=== PATIENT | female | born 1935 | race Caucasian/White ===

== ENCOUNTER 2019-02-27 17:48 | Inpatient (IN) | payer MEDICARE ==
[~2019-02-27] VITALS: Ht 165.1 cm; Wt 63.5 kg
[2019-02-27] MEDS ORDERED: METO100ER PO (18:05)
[2019-02-27] MEDS ORDERED: TIMO.5OPSO BOTHEYES (18:05)
[2019-02-27] MEDS ORDERED: ALLO100 PO (18:05)
[2019-02-27] MEDS ORDERED: LORA1 PO (18:05)
[2019-02-27] MEDS ORDERED: Dyazide 37.5-21 EACH PO (18:05)
[2019-02-27] MEDS ORDERED: Isosorbide Mono30 MG PO (18:05)
[2019-02-27 18:15] LABS: Calcium, Ionized (POC) 1.23 mmol/L (1.10-1.46); Chloride (POC) 87 mmol/L (98-108); Creatinine (POC) 1.4 mg/dL (0.6-1.0); Glucose (ISTAT POC) 143 mg/dL (70-99); Hemoglobin (POC) 14.3 g/dL (12.0-16.0); Potassium (POC) 3.3 mmol/L (3.5-5.5); Sodium (POC) 126 mmol/L (135-148); Total CO2 (POC) 29 mmol/L (21-32)
[2019-02-27 18:23] LABS: Source, Urine Clean Catch
[2019-02-27 18:25] LABS: Bilirubin, Urine Neg (Neg); Blood, Urine 5+ (Neg); Glucose Qualitative, Urine Neg (Neg); Ketones, Urine Neg (Neg); Leukocyte Esterase, Urine 2+ (Neg); Nitrite, Urine Neg (Neg); Protein, Urine 3+ (Neg); Specific Gravity, Urine 1.015 (1.003-1.022); Urobilinogen, Urine NORM (Normal)
[2019-02-27 18:36] LABS: BASOPHILS ABSOLUTE AUTO 0.05 K/mm3 (0.00-0.23); BASOPHILS PERCENT AUTO 0 % (0-2); EOSINOPHILS PERCENT AUTO 0 % (0-6); Hematocrit 37.8 % (33.0-51.0); Hemoglobin 12.9 g/dL (11.5-16.0); IMMATURE GRAN ABSOLUTE AUTO 0.13 K/mm3 (0.00-0.10); IMMATURE GRAN PERCENT AUTO 1 % (0-1); LYMPHOCYTES ABSOLUTE AUTO 0.77 K/mm3 (0.84-5.20); LYMPHOCYTES PERCENT AUTO 4 % (21-46); MONOCYTES ABSOLUTE AUTO 1.51 K/mm3 (0.16-1.47); MONOCYTES PERCENT AUTO 7 % (4-13); Mean Corpuscular HGB 33.1 pg (26.0-34.0); Mean Corpuscular HGB Conc 34.1 g/dL (31.5-36.5); Mean Corpuscular Volume 97 fL (80-100); Mean Platelet Volume 8.9 fL (9.1-12.4); NEUTROPHILS ABSOLUTE AUTO 18.24 K/mm3 (1.96-9.15); NEUTROPHILS PERCENT AUTO 88 % (41-73); Platelet Count 405 K/mm3 (150-400); RDW Coefficient Variation 12.4 % (11.7-14.2); RDW Standard Deviation 44.3 fL (35.1-46.3)
[2019-02-27 18:37] LABS: U Amphetamine Screen Not Detected; U Barbituate Screen Not Detected; U Benzodiazapine Screen Not Detected; U Buprenorphine Screen Not Detected; U Cannabinoids Screen Not Detected; U Cocaine Screen Not Detected; U Methadone Screen Not Detected; U Methamphetamine Screen Not Detected; U Opiates Screen Not Detected; U Oxycodone Screen Not Detected; U Phencyclidine Screen Not Detected; U Propoxyphene Screen Not Detected
[2019-02-27 18:47] LABS: Appearance, Urine Hazy (Clear); Color, Urine Yellow (P-Yellow)
[2019-02-27 18:48] LABS: White Blood Cells, Urine 25-50 /hpf (0-5)
[2019-02-27 18:49] LABS: Red Blood Cells, Urine 50-100 /hpf (0-2)
[2019-02-27 18:50] LABS: Bacteria Many /hpf; Squamous Epithelial Cells Few /hpf (Few)
[2019-02-27 18:51] LABS: Alanine Aminotransfer (ALT/SGP 34 U/L (12-78); Albumin, Blood 3.7 g/dL (3.4-5.0); Albumin/Globulin Ratio 0.8 (0.8-1.8); Alk Phos 104 U/L (50-136); Anion Gap 11 mmol/L (6-16); Aspartate Aminotrans (AST/SGOT 45 U/L (12-37); Bilirubin, Total 0.7 mg/dL (0.1-1.0); Blood Urea Nitrogen 30 mg/dL (8-24); CO2, Blood 28 mmol/L (21-32); CPK Creatine Kinase 653 U/L (26-193); Calcium, Blood 10.5 mg/dL (8.5-10.1); Chloride, Blood 87 mmol/L (98-108); Ethanol (Alcohol), Blood, Med <3 mg/dL; Globulin, Blood 4.4 g/dL (2.2-4.0); Glomerular Filtration Rate 45 (60-); Glucose, Blood 143 mg/dL (70-99); Potassium, Blood 3.3 mmol/L (3.5-5.5); Salicylate <1.7 mg/dL (2.8-20.0); Sodium, Blood 126 mmol/L (136-145); Total Protein, Blood 8.1 g/dL (6.4-8.2); Troponin I 0.039 ng/mL (0.000-0.040)
[2019-02-27 18:52] LABS: Acetaminophen, Random <2.0 ug/mL (10.0-30.0)
[2019-02-27 19:06] LABS: Creatine Kinase MB 8.1 ng/mL (0.0-3.6); Creatine Kinase MB Index 1.2 (0.0-4.0)
[2019-02-27] MEDS ORDERED: NITR.4SL SL (22:54)
[2019-02-28 05:18] LABS: BASOPHILS ABSOLUTE AUTO 0.03 K/mm3 (0.00-0.23); BASOPHILS PERCENT AUTO 0 % (0-2); EOSINOPHILS ABSOLUTE AUTO 0.01 K/mm3 (0.00-0.68); EOSINOPHILS PERCENT AUTO 0 % (0-6); Hematocrit 29.3 % (33.0-51.0); Hemoglobin 10.1 g/dL (11.5-16.0); IMMATURE GRAN ABSOLUTE AUTO 0.11 K/mm3 (0.00-0.10); IMMATURE GRAN PERCENT AUTO 1 % (0-1); LYMPHOCYTES ABSOLUTE AUTO 0.89 K/mm3 (0.84-5.20); LYMPHOCYTES PERCENT AUTO 6 % (21-46); MONOCYTES ABSOLUTE AUTO 1.47 K/mm3 (0.16-1.47); MONOCYTES PERCENT AUTO 10 % (4-13); Mean Corpuscular HGB 33.4 pg (26.0-34.0); Mean Corpuscular HGB Conc 34.5 g/dL (31.5-36.5); Mean Corpuscular Volume 97 fL (80-100); NEUTROPHILS ABSOLUTE AUTO 11.84 K/mm3 (1.96-9.15); NEUTROPHILS PERCENT AUTO 83 % (41-73); Platelet Count 308 K/mm3 (150-400); RDW Coefficient Variation 12.9 % (11.7-14.2); RDW Standard Deviation 44.9 fL (35.1-46.3); Red Blood Cell Count 3.02 M/mm3 (3.80-5.20); White Blood Cell Count 14.35 K/mm3 (4.00-11.30)
--- NOTE | 2019-02-28 05:25 | NUR ---
SHIFT SUMMARY RECIEVED REPORT FROM COREY SANCHEZ, ED @ 2123. PATIENT ARRIVED TO MEDICAL FLOOR @ 2211; FAMILY WITH PATIENT (SON AND [id number]). ORIENTED TO ROOM AND CALL SYSTEM. A/O, ABLE TO MAKE NEEDS KNOWN. COOPERATIVE WITH CARE. ANSWERING QUESTIONS APPROPRIATELY. C/O PAIN/DISCOMFORT; MEDICATED PER EMAR. FOUND DOWN UNKNOWN PERIOD OF TIME @ RESIDENCE BY FAMILY. SUSTAINED MULTIPLE ABRASIONS AND HAS OLD BRUSING WELL. PHOTO DOCUMENTATION IN CHART. YAN PATENT AND DRAINING (PLACED IN ED FOR RETENTION). VSS/AFEBRILE. NO ACUTE CHANGES NOTED OVERNIGHT. APPEARED TO REST MUCH OF SHIFT. BED REMAINED IN LOWEST POSITION. CALL LIGHT IN REACH. WCTM. REPORT TO BRETT SANCHEZ.
[2019-02-28 05:38] LABS: Bun/Creatinine Ratio 22.6 (12.0-20.0); Calcium, Blood 8.9 mg/dL (8.5-10.1); Creatinine, Blood 1.59 mg/dL (0.40-1.00); Potassium, Blood 3.5 mmol/L (3.5-5.5)
--- NOTE | 2019-02-28 17:05 | NUR ---
SHIFT SUMMARY. A&OX4, PT HAS REQUESTED TO NOT GET OOB TODAY SHE IS VERY PAINFUL FROM HER FALL, PT/OT ORDERED FOR TOMORROW. PT WITH GENERALIZED PAIN MANAGED TO PT'S SATISFACTION WITH APAP. HEAT PAD PLACED TO PT'S NECK THIS AM SHE C/O NECK PAIN, PT REPORTS RELIEF. PT DENIES SOB, N/V. YAN PATENT AND DRAINING. FAMILY AT BEDSIDE INTERMITTENTLY DURING SHIFT. NO NEW CHANGES OR CONCERNS.
[2019-03-01 05:16] LABS: BASOPHILS ABSOLUTE AUTO 0.03 K/mm3 (0.00-0.23); BASOPHILS PERCENT AUTO 0 % (0-2); EOSINOPHILS ABSOLUTE AUTO 0.17 K/mm3 (0.00-0.68); EOSINOPHILS PERCENT AUTO 2 % (0-6); IMMATURE GRAN ABSOLUTE AUTO 0.05 K/mm3 (0.00-0.10); IMMATURE GRAN PERCENT AUTO 1 % (0-1); LYMPHOCYTES PERCENT AUTO 16 % (21-46); MONOCYTES ABSOLUTE AUTO 1.44 K/mm3 (0.16-1.47); MONOCYTES PERCENT AUTO 20 % (4-13); Mean Corpuscular HGB 33.7 pg (26.0-34.0); Mean Corpuscular HGB Conc 33.3 g/dL (31.5-36.5); Mean Platelet Volume 8.9 fL (9.1-12.4); NEUTROPHILS ABSOLUTE AUTO 4.45 K/mm3 (1.96-9.15); NEUTROPHILS PERCENT AUTO 61 % (41-73); Platelet Count 263 K/mm3 (150-400); RDW Coefficient Variation 13.2 % (11.7-14.2); RDW Standard Deviation 48.5 fL (35.1-46.3); Red Blood Cell Count 2.67 M/mm3 (3.80-5.20); White Blood Cell Count 7.34 K/mm3 (4.00-11.30)
[2019-03-01 05:20] LABS: Mean Corpuscular Volume 101 fL (80-100)
[2019-03-01 05:41] LABS: CPK Creatine Kinase 179 U/L (26-193)
--- NOTE | 2019-03-01 05:41 | NUR ---
SHIFT SUMMARY A/O, ABLE TO MAKE NEEDS KNOWN. COOPERATIVE WITH CARE. FORGETFUL AT TIMES. ANSWERS QUESTIONS APPROPRIATELY. C/O PAIN/DISCOMFORT THAT IS GENERALIZED; MEDICATED PER EMAR. APPEARS VERY PAINFUL UPON ANY MOVEMENT. YAN PATENT AND DRAINING TO GRAVITY. REMAINS HYPERTENSIVE, BUT APPEARS ON TREND WITH PREVIOUS PRESSURES; ALL OTHER VS WNL. 1 SMALL BM; THAT WAS LOOSE/LIQUIDOUS. ABDOMEN REMAINS DISTENDED, BUT NON-TENDER. APPEARED TO REST MUCH OF SHIFT. NO ACUTE CHANGES NOTED OVERNIGHT. BED IN LOWEST POSITION. CALL LIGHT AND BELONGINGS WITHIN REACH. WCTM. REPORT TO ONCOMING RN.
[2019-03-01 05:42] LABS: Albumin, Blood 2.5 g/dL (3.4-5.0); Anion Gap 7 mmol/L (6-16); Blood Urea Nitrogen 33 mg/dL (8-24); Bun/Creatinine Ratio 24.3 (12.0-20.0); CO2, Blood 26 mmol/L (21-32); Calcium, Blood 8.5 mg/dL (8.5-10.1); Chloride, Blood 103 mmol/L (98-108); Creatinine, Blood 1.36 mg/dL (0.40-1.00); Glomerular Filtration Rate 39 (60-); Glucose, Blood 95 mg/dL (70-99); Phosphorus, Blood 1.7 mg/dL (2.5-4.9); Potassium, Blood 3.5 mmol/L (3.5-5.5); Sodium, Blood 136 mmol/L (136-145)
--- NOTE | 2019-03-01 17:53 | NUR ---
SHIFT SUMMARY PT AXO, COOPERATIVE WITH CARE THOUGH FLAT AFFECT. BP AT 0737 WAS 197/67. DR VALLE AWARE AND NEW ORDERS INITIATED. FEBRILE AT 1445 AT 100.4, MEDICATED PER EMAR FOR FEVER AND PAIN. BP AT 1445 WAS 152/63. PT STATES THAT SHE IS "DEPRESSED" RELATED TO HER HEALTH AND THE CHANGES TO HER LIFESTYLE. ACTIVE LISTENING AND THERAPEUTIC COMMUNICATION UNTILIZED. FAMILY MEMBERS IN THE ROOM AT THIS TIME. BED IN LOW POSITION, CALL LIGHT WITHIN REACH. BED ALARM ON. PT WORKED WITH PHYSICAL THERAPY, SEE NOTE. SOCIAL SERVICE CONSULT, SEE NOTE.
--- NOTE | 2019-03-02 04:24 | NUR ---
SHIFT SUMMARY: PT IS ALERT AND ORIENTED. PT IS CALM AND COOPERATIVE WITH CARE. PT CALLS APPROPRIATELY. PT IS A ONE PERSON ASSIST TO THE BATHROOM WITH THE FWW. PT REPORTS PAIN DURING AMBULATION, NO MEDICATIONS REQUIRED. PT DENIES NAUSEA, VOMITING, AND SOB. PT HAD SUCCESSFUL VOID AND A BM. PT SLEPT INTERMITTENTLY THROUGHOUT THE NIGHT. NO ACUTE CHANGES OR COMPLICATIONS. BED IN LOW POSITION, CALL LIGHT WITHIN REACH. WILL REPORT TO DAY NURSE.
[2019-03-02 05:12] LABS: BASOPHILS ABSOLUTE AUTO 0.04 K/mm3 (0.00-0.23); BASOPHILS PERCENT AUTO 1 % (0-2); EOSINOPHILS ABSOLUTE AUTO 0.18 K/mm3 (0.00-0.68); EOSINOPHILS PERCENT AUTO 2 % (0-6); Hematocrit 29.5 % (33.0-51.0); Hemoglobin 9.8 g/dL (11.5-16.0); IMMATURE GRAN PERCENT AUTO 1 % (0-1); LYMPHOCYTES ABSOLUTE AUTO 1.42 K/mm3 (0.84-5.20); LYMPHOCYTES PERCENT AUTO 17 % (21-46); MONOCYTES ABSOLUTE AUTO 1.35 K/mm3 (0.16-1.47); MONOCYTES PERCENT AUTO 16 % (4-13); Mean Corpuscular HGB 32.3 pg (26.0-34.0); Mean Corpuscular HGB Conc 33.2 g/dL (31.5-36.5); Mean Platelet Volume 8.9 fL (9.1-12.4); NEUTROPHILS ABSOLUTE AUTO 5.45 K/mm3 (1.96-9.15); NEUTROPHILS PERCENT AUTO 64 % (41-73); Platelet Count 310 K/mm3 (150-400); RDW Coefficient Variation 13.1 % (11.7-14.2); RDW Standard Deviation 46.5 fL (35.1-46.3); Red Blood Cell Count 3.03 M/mm3 (3.80-5.20); White Blood Cell Count 8.54 K/mm3 (4.00-11.30)
[2019-03-02 05:19] LABS: Mean Corpuscular Volume 97 fL (80-100)
[2019-03-02 05:31] LABS: Bun/Creatinine Ratio 24.1 (12.0-20.0); Calcium, Blood 8.9 mg/dL (8.5-10.1); Creatinine, Blood 1.16 mg/dL (0.40-1.00); Magnesium, Blood 1.4 mg/dL (1.6-2.4); Phosphorus, Blood 1.7 mg/dL (2.5-4.9); Potassium, Blood 3.3 mmol/L (3.5-5.5)
--- NOTE | 2019-03-02 17:10 | NUR ---
SHIFT SUMMARY NO ACUTE CHANGES. PATIENT DENIES PAIN, NAUSEA, AND SHORTNESS OF BREATH. PATIENT UP IN CHAIR FOR MEALS, 1 ASSIST W/FWW TO BR. PATIENT HAS KPAD FOR COMFORT AND "ACHES". PATIENT WORKED WITH PT TODAY. PROBABLE DISCHARGE TOMORROW.
[2019-03-03 05:38] LABS: Bun/Creatinine Ratio 22.7 (12.0-20.0); Calcium, Blood 8.9 mg/dL (8.5-10.1); Creatinine, Blood 1.1 mg/dL (0.40-1.00); Potassium, Blood 3.8 mmol/L (3.5-5.5)
--- NOTE | 2019-03-03 06:07 | NUR ---
SHIFT SUMMARY SLEPT WELL AFTER REPOSITIONING AND TYLENOL FOR LEFT SHOULDER PAIN AT HS. ASSESSMENT BENIGN WITH EXCEPTION OF MULTIPLE DISCEMINATED BRUISES AND ABRASIONS ON BOTH KNEES AND RIGHT HIP.
[2019-03-03] MEDS ORDERED: AMLO10 (12:25)
[2019-03-03] MEDS ORDERED: Isosorbide Mono30 MG PO (12:26)
[2019-03-03] MEDS ORDERED: Vsl#3 Capsule1 EACH (12:28)
[2019-03-03] MEDS ORDERED: CEPH500 PO (12:29)
--- NOTE | 2019-03-03 13:24 | NUR ---
DISCHARGE DISCHARGE MEDICATIONS AND INSTRUCTIONS EXPLAINED TO PATIENT. SHE STATED UNDERSTANDING, FOLLOW UP APPOINTMENT WITH PCP SCHEDULED. IV REMOVED WITHOUT DIFFICULTY. BELONGINGS WITH PATIENT. PATIENT TRANSFERED TO PRIVATE VEHICLE VIA WHEELCHAIR.
== END 2019-03-03 13:00 | disposition home health service (06) | DRG 871 ==
LOC: ER 17:48 → MEDS 19:30 → ENPENDDIS 03-03 11:31 → MEDS 03-03 13:00
PROVIDERS: Emergency Medicine; Internal Medicine; ADMIT Internal Medicine
DX: A41.51 Sepsis due to Escherichia coli [E. coli] (principal); G92 Toxic encephalopathy; D62 Acute posthemorrhagic anemia; N17.9 Acute kidney failure, unspecified; E87.1 Hypo-osmolality and hyponatremia; M62.82 Rhabdomyolysis; N39.0 Urinary tract infection, site not specified; M10.9 Gout, unspecified; I77.9 Disorder of arteries and arterioles, unspecified; Z87.891 Personal history of nicotine dependence; Z66 Do not resuscitate; E87.6 Hypokalemia; A49.8 Other bacterial infections of unspecified site; N18.3 Chronic kidney disease, stage 3 (moderate); I73.9 Peripheral vascular disease, unspecified; I12.9 Hypertensive chronic kidney disease with stage 1 through stage 4 chronic kidney disease, or unspecified chronic kidney disease
CPT/HCPCS: 36415; 51702; 70450; 71250; 72125; 73110; 73502; 74176; 80047; 80048; 80053; 80069; 81001; 82140; 82550; 82553; 82947; 83605; 83735; 83880; 84100; 84484; 85014; 85025; 87040; 87077; 87086; 87186; 93005; 93010; 96361-59; 96365-59; 96375-59; 97110; 97116; 97162; 97166; 97530; 97535; 99285-25; A9270; A9270-GY; G0480; J0360; J0696; J1650; J3010; J3475; J3480; J7030; J7050; J7060; P9612

== ENCOUNTER 2019-07-06 18:32 | Emergency (ER) | payer MEDICARE ==
[~2019-07-06] VITALS: Ht 170.2 cm; Wt 65.8 kg
[~2019-07-06 18:32] MED LIST: ALLO100 PO; AMLO10; CEPH500 PO; Dyazide 37.5-21 EACH PO; Isosorbide Mono30 MG PO; LORA1 PO; METO100ER PO; NITR.4SL SL; TIMO.5OPSO BOTHEYES; Vsl#3 Capsule1 EACH
[2019-07-06 20:09] LABS: BASOPHILS ABSOLUTE AUTO 0.05 K/mm3 (0.00-0.23); BASOPHILS PERCENT AUTO 1 % (0-2); EOSINOPHILS ABSOLUTE AUTO 0.38 K/mm3 (0.00-0.68); EOSINOPHILS PERCENT AUTO 5 % (0-6); Hematocrit 34.8 % (33.0-51.0); Hemoglobin 11.7 g/dL (11.5-16.0); IMMATURE GRAN ABSOLUTE AUTO 0.06 K/mm3 (0.00-0.10); IMMATURE GRAN PERCENT AUTO 1 % (0-1); LYMPHOCYTES PERCENT AUTO 12 % (21-46); MONOCYTES ABSOLUTE AUTO 1.03 K/mm3 (0.16-1.47); MONOCYTES PERCENT AUTO 12 % (4-13); Mean Corpuscular HGB 32.8 pg (26.0-34.0); Mean Corpuscular HGB Conc 33.6 g/dL (31.5-36.5); Mean Corpuscular Volume 98 fL (80-100); Mean Platelet Volume 8.5 fL (9.1-12.4); NEUTROPHILS ABSOLUTE AUTO 5.76 K/mm3 (1.96-9.15); NEUTROPHILS PERCENT AUTO 70 % (41-73); Platelet Count 340 K/mm3 (150-400); RDW Coefficient Variation 12.5 % (11.7-14.2); RDW Standard Deviation 45.1 fL (35.1-46.3); Red Blood Cell Count 3.57 M/mm3 (3.80-5.20); White Blood Cell Count 8.28 K/mm3 (4.00-11.30)
[2019-07-06 20:29] LABS: Albumin, Blood 3.8 g/dL (3.4-5.0); Bilirubin, Total 0.2 mg/dL (0.1-1.0); Bun/Creatinine Ratio 33.3 (12.0-20.0); Calcium, Blood 9.6 mg/dL (8.5-10.1); Creatinine, Blood 1.14 mg/dL (0.40-1.00); Potassium, Blood 3.7 mmol/L (3.5-5.5); Total Protein, Blood 7.8 g/dL (6.4-8.2)
[2019-07-06] MEDS ORDERED: ISOSORBIDE MONO30 MG PO (20:59)
[2019-07-06 21:33] LABS: Source, Urine Clean Catch
[2019-07-06 21:35] LABS: Bilirubin, Urine Neg (Neg); Blood, Urine Neg (Neg); Glucose Qualitative, Urine Neg (Neg); Ketones, Urine Neg (Neg); Leukocyte Esterase, Urine Neg (Neg); Nitrite, Urine Neg (Neg); Protein, Urine 1+ (Neg); Specific Gravity, Urine 1.015 (1.003-1.022); Urobilinogen, Urine NORM (Normal)
[2019-07-06 21:42] LABS: Appearance, Urine Clear (Clear); Color, Urine Yellow (P-Yellow)
== END 2019-07-06 22:55 | disposition home or self-care (01) ==
LOC: ER 18:32
PROVIDERS: Physician Assistant
DX: S22.32XA Fracture of one rib, left side, initial encounter for closed fracture (principal); E86.0 Dehydration; W01.198A Fall on same level from slipping, tripping and stumbling with subsequent striking against other object, initial encounter; Z79.899 Other long term (current) drug therapy; Z87.891 Personal history of nicotine dependence
CPT/HCPCS: 36415; 71101; 73060; 80053; 85025; 99283-25; A9270; A9270-GY

== ENCOUNTER 2020-10-07 15:36 | Emergency (ER) | payer MEDICARE ==
[~2020-10-07] VITALS: Ht 170.2 cm; Wt 65.3 kg
[~2020-10-07 15:36] MED LIST changes: +ISOSORBIDE MONO30 MG PO
[2020-10-07] MEDS ORDERED: KLOR-CON 1010 ME2 PO (16:35)
[2020-10-07] MEDS ORDERED: FUROSEMIDE40 MG PO (16:35)
[2020-10-07] MEDS ORDERED: METO100ER PO (16:36)
[2020-10-07] MEDS ORDERED: LOSARTAN POTASS25 M2 (16:36)
[2020-10-07] MEDS ORDERED: TIMO10T (16:37)
[2020-10-07] MEDS ORDERED: ASPI325 PO (16:38)
[2020-10-07] MEDS ORDERED: HYDR1TAB94 PO (18:45)
== END 2020-10-07 19:04 | disposition home or self-care (01) ==
LOC: ER 15:36
DX: S01.81XA Laceration without foreign body of other part of head, initial encounter (principal); I12.9 Hypertensive chronic kidney disease with stage 1 through stage 4 chronic kidney disease, or unspecified chronic kidney disease; N18.9 Chronic kidney disease, unspecified; Z79.899 Other long term (current) drug therapy; Z87.891 Personal history of nicotine dependence; W01.198A Fall on same level from slipping, tripping and stumbling with subsequent striking against other object, initial encounter
CPT/HCPCS: 12013; 70450; 72125; 90471; 90714; 99283-25; A9270; L0160

== ENCOUNTER 2021-01-10 09:55 | Observation (INO) | payer MEDICARE ==
[~2021-01-10] VITALS: Ht 175.3 cm; Wt 64.5 kg
[~2021-01-10 09:55] MED LIST changes: +Aspir 8181 MG PO; +FUROSEMIDE40 MG PO; +HYDR1TAB94 PO; +KLOR-CON 1010 ME2 PO; +LOSARTAN POTASS25 M2 PO; +TIMO10T
[2021-01-10 11:10] LABS: BASOPHILS ABSOLUTE AUTO 0.03 K/mm3 (0.00-0.23); BASOPHILS PERCENT AUTO 0 % (0-2); EOSINOPHILS PERCENT AUTO 0 % (0-6); Hematocrit 32.8 % (33.0-51.0); Hemoglobin 11.1 g/dL (11.5-16.0); IMMATURE GRAN PERCENT AUTO 1 % (0-1); LYMPHOCYTES ABSOLUTE AUTO 0.63 K/mm3 (0.84-5.20); LYMPHOCYTES PERCENT AUTO 4 % (21-46); MONOCYTES PERCENT AUTO 8 % (4-13); Mean Corpuscular HGB 31.9 pg (26.0-34.0); Mean Corpuscular HGB Conc 33.8 g/dL (31.5-36.5); Mean Corpuscular Volume 94 fL (80-100); NEUTROPHILS ABSOLUTE AUTO 14.45 K/mm3 (1.96-9.15); NEUTROPHILS PERCENT AUTO 88 % (41-73); RDW Coefficient Variation 13.7 % (11.7-14.2); RDW Standard Deviation 47.4 fL (35.1-46.3); Red Blood Cell Count 3.48 M/mm3 (3.80-5.20); White Blood Cell Count 16.51 K/mm3 (4.00-11.30)
[2021-01-10 11:14] LABS: Mean Platelet Volume 10.1 fL (9.1-12.4)
[2021-01-10 11:16] LABS: Troponin I 0.035 ng/mL (0.000-0.040)
[2021-01-10 11:21] LABS: Albumin, Blood 3.2 g/dL (3.4-5.0); Albumin/Globulin Ratio 0.7 (0.8-1.8); Bilirubin, Total 0.8 mg/dL (0.1-1.0); Bun/Creatinine Ratio 21.6 (12.0-20.0); Calcium, Blood 9.4 mg/dL (8.5-10.1); Creatinine, Blood 1.71 mg/dL (0.40-1.00); Globulin, Blood 4.4 g/dL (2.2-4.0); Potassium, Blood 5.3 mmol/L (3.5-5.5); Total Protein, Blood 7.6 g/dL (6.4-8.2)
[2021-01-10 11:36] LABS: Creatine Kinase MB 11.8 ng/mL (0.0-3.6); Creatine Kinase MB Index 0.6 (0.0-4.0)
[2021-01-10 11:59] LABS: Platelet Count 221 K/mm3 (150-400)
[2021-01-10] MEDS ORDERED: FUROSEMIDE20 MG PO (13:11)
[2021-01-10] MEDS ORDERED: PARO10 PO (13:11)
[2021-01-10] MEDS ORDERED: TIMOLOL MALEATE5 ML BOTHEYES (13:12)
[2021-01-10] MEDS ORDERED: ALLOPURINOL100 M1 PO (13:12)
--- NOTE | 2021-01-10 18:15 | NUR ---
PT APPEARS EXTREMELY PEACEFUL. RESPIRATIONS ARE EVEN/UNLABORED. SHE HAS NO FURROW IN HER BROW. SHE APPEARS CALM; COMPLETELY RELAXED. SHE REMAINS ON COMFORT CARE, WITH A FENTANYL PATCH IN PLACE. NO RESPONSE TO VOICE, MOVEMENT.
--- NOTE | 2021-01-10 19:17 | NUR ---
SHIFT SUMMARY PT ADMITTED TO UNIT THIS SHIFT FROM ED. PT ON COMFORT MEASURES. UNRESPONSIVE, PT OCCASSIONALLY MOANS. NO MOVEMENT TO EXTREMITIES NOTED ON ASSESSMENT. NO RESPONSE NOTED TO TOUCH OR VOICE. PT INCONTINENT OF B&B, ATTENDS IN PLACE. RESPS E/U IN RA. PT APPEARS COMFORTABLE IN BED AT THIS TIME. BED AT LOWEST POSITION. CALL LIGHT WITHIN REACH.
--- NOTE | 2021-01-11 14:41 | NUR ---
Met with pt's family at bedside. Pt is lying back, eyes closed, with respiration even and unlabored. She remains unconcious, with a fentanyl patch on for breakthrough pain. Bedside RN Kristofer reports he has had to give pt roxanol twice so far today, as she was grimacing earlier. He states he had given 10mg each time, but she was continuing to grimace so he upped the dose to 20mg roxanol, which is appropriate. Family is tearful, but understanding regarding pt's timeline symptoms and prognosis. They report having spoken with Dr. Manzano recently, and they deny any further questions or concerns at this time.
--- NOTE | 2021-01-11 18:19 | NUR ---
SHIFT SUMMARY PATIENT IS A COMFORT CARE PATIENT. PATIENT FAMILY IN THE ROOM THROUGHOUT THIS SHIFT. PATIENT'S PAIN MEDICATED THROUGHOUT THIS SHIFT PER EMAR. PATIENT RESPONDS MINIMALLY TO VERBAL STIMULI. PATIENT NEEDING SUCTIONING FREQUENTLY THROUGHOUT THIS SHIFT. PATIENT CURRENTLY RESTING IN BED, FAMILY AT BEDSIDE.
--- NOTE | 2021-01-12 18:24 | NUR ---
SHIFT SUMMARY PATIENT IS ON COMFORT CARE. PATIENT MEDICATED PER EMAR FOR PAIN. PATIENT NON-RESPONSIVE THROUGHOUT THIS SHIFT. PATIENT'S FAMILY IN THE ROOM. PATIENT WITH 3-6 RESPIRATIONS PER MINUTE THROUGHT MUCH OF THIS SHIFT. PATIENT APPEARS COMFORTABLE THROUGH THIS SHIFT. NO ACUTE CHANGES THIS SHIFT.
--- NOTE | 2021-01-13 08:59 | NUR ---
Comfort Care Visit Spoke with Machine Puller Mindy and discussed case. Pt resting in bed with her eyes closed and is non responsive. Pt's respiration 4/min. Pt appears comfortable with no S/S of distress at this time. Pt appears imminent. Palliative Care will remain available.
--- NOTE | 2021-01-14 06:49 | NUR ---
SUMMARY PT HAS REMAINED COMFORTABLE. WCTM.
--- NOTE | 2021-01-15 12:34 | NUR ---
Comfort Care Visit Pt resting in bed and is non responsive. Pt appears comfortable with no S/S of distress at this time. Son Caleb at bedside. Offered supportive listening and discussed potential needs for Pt to move on. Son is thinking Pt may be waiting on a [facility] to visit. Son expresses appreciation of visist and reports no other concerns at this time. Spoke with Keith Dan. He will make visit. Palliative Care will remain available.
--- NOTE | 2021-01-15 19:11 | NUR ---
SHIFT SUMMARY PATIENT ON COMFORT CARE. PATIENT'S SON IN THE ROOM THROUGHOUT THIS SHIFT. PATIENT REMAINS NONRESPONSIVE THROUGHOUT THIS SHIFT. PATIENT TURNED AND CHANGED PER SON'S REQUEST. PATIENT APPEARS COMFORTABLE THROUGHOUT THIS SHIFT.
== END 2021-01-16 11:45 ==
LOC: ER 09:55 → ERHOLD 09:56 → MEDS 09:56 → ERHOLD 13:07 → ER 13:07 → ERHOLD 14:52 → MEDS 14:52
PROVIDERS: Emergency Medicine; ADMIT Internal Medicine
DX: I61.5 Nontraumatic intracerebral hemorrhage, intraventricular (principal); I60.6 Nontraumatic subarachnoid hemorrhage from other intracranial arteries; S80.01XA Contusion of right knee, initial encounter; S70.01XA Contusion of right hip, initial encounter; S00.11XA Contusion of right eyelid and periocular area, initial encounter; S00.83XA Contusion of other part of head, initial encounter; Z51.5 Encounter for palliative care; Z66 Do not resuscitate; I12.9 Hypertensive chronic kidney disease with stage 1 through stage 4 chronic kidney disease, or unspecified chronic kidney disease; N18.9 Chronic kidney disease, unspecified; M10.9 Gout, unspecified; I25.10 Atherosclerotic heart disease of native coronary artery without angina pectoris; Z91.81 History of falling; W19.XXXA Unspecified fall, initial encounter; Y92.010 Kitchen of single-family (private) house as the place of occurrence of the external cause
CPT/HCPCS: 70450; 71045; 72125; 73502; 80053; 82550; 82553; 84484; 85025; 93005; 93010; 96374; 96375; 96376; 99285-25; A9270; G0378; J1170; J1630; J2060; J2270; J2405; J7030; P9612